=== PATIENT | female | born 1985 | race African-American/Black ===

== ENCOUNTER → 2023-06-29 09:50 | Outpatient (BNVA) | payer SELFPAY | PROVIDERS: Visit Provider Physician Assistant Medical ==

== ENCOUNTER 2024-04-23 16:00 | Emergency (ER) | payer MEDICAID, SELFPAY ==
--- NOTE | ~2024-04-23 | XR_ITS ---
CLINICAL HISTORY: fall on ice 3 view right foot Comparison: None Findings: No fractures or dislocations. No significant loss of joint space, osteophytes, or erosions. No ankle effusion. No radiopaque foreign body. IMPRESSION: 1. Dorsal soft tissue swelling in the forefoot. 2. No acute fracture or dislocation. This document has been electronically signed by: Mojgan Bolden DO on 04/23/2024 17:35:17
--- NOTE | ~2024-04-23 | XR_ITS ---
CLINICAL HISTORY: fall on ice 4 view right knee Comparison: None Findings: Bones intact. No dislocations. No significant loss of joint space, osteophytes, or erosions. No joint effusion. No radiopaque foreign body. IMPRESSION: No acute fracture, dislocation or significant joint effusion. This document has been electronically signed by: Mojgan Bolden DO on 04/23/2024 17:33:12
--- NOTE | ~2024-04-23 | XR_ITS ---
CLINICAL HISTORY: fall on ice 3 view, pelvis and right hip Comparison: None Findings: Four films were obtained. No acute fracture or dislocation. No significant arthritic change. The soft tissues are unremarkable. IMPRESSION: No acute fracture or dislocation. This document has been electronically signed by: Mojgan Bolden DO on 04/23/2024 17:37:46
--- NOTE | ~2024-04-23 | XR_ITS ---
CLINICAL HISTORY: fall on ice 3 view right ankle Comparison: None Findings: No acute fractures. Ankle mortise intact. No significant arthritic change or erosions. No ankle effusion. No radiopaque foreign body. Minimal plantar tendon enthesopathy. IMPRESSION: No acute fracture or dislocation. This document has been electronically signed by: Mojgan Bolden DO on 04/23/2024 17:33:52
[2024-04-23 16:07] VITALS: BP 128/77; PULSE 100; RESP 18; TEMP 36.8; O2SAT 100; BMI 29.0
--- NOTE | 2024-04-23 16:08 | ED_ITS ---
HPI - Extremity Injury (Lower) General Chief Complaint: Fall Stated Complaint: fall, rt ankle injury Time Seen by Provider: 04/23/24 18:27 Source: patient, RN notes reviewed and old records reviewed Mode of arrival: ambulatory History of Present Illness ED Provider: Jocelin Victor PA-C HPI Narrative: 38-year-old female no significant past medical history presenting to the ED complaining of right hip, knee, ankle and foot pain/swelling s/p mechanical slip and fall on ice 3 days ago. Denies head trauma or LOC. Has been ambulatory with pain. Denies numbness, tingling, weakness Related Data Allergies Allergy/AdvReac Type Severity Reaction Status Date / Time No Known Allergies Allergy Verified 04/23/24 16:12 Review of Systems Review of Systems: Yes all other systems are reviewed and are negative Constitutional: Constitutional: Reports as per [facility] Past Medical History Attestation statement: The following information was validated with the patient. Source: old records reviewed Physical Exam Vital Signs: Vital Signs: Last Vital Signs Temp 98.3 F 04/23/24 16:07 Pulse 100 04/23/24 16:07 Resp 18 04/23/24 16:07 BP 128/77 04/23/24 16:07 Pulse Ox 100 04/23/24 16:07 O2 Del Method Room Air 04/23/24 16:07 BMI result Body Mass Index 29.0 Const: General: cooperative, healthy appearing and no acute distress Orientation/consciousness: patient oriented x3 Limitations: no limitations HEENT: Head: Yes normal to inspection and Yes atraumatic Ears: hearing grossly normal bilaterally General nose exam: Normal external nose present Face and sinus: Yes normal facial exam Eyes: General: appearance normal, both eyes and all related structures EOM: EOMs intact bilaterally Neck: Neck: Yes normal visual inspection and Yes no meningeal signs Resp: Effort & Inspection: normal respiratory effort and no respiratory distress Auscultation: clear to auscultation bilaterally Cardio: Rate: regular rate Heart sounds: S1 normal heart sound present and S2 normal heart sound present Skin: Rashes: no rashes Wounds: no wounds Neuro: General: patient oriented x3, tone normal and no meningeal signs Cranial nerves: Yes CN's II-XII intact bilaterally Gait exam (Neuro): Normal gait present Extrem: Other: Pelvis stable. Right hip without reproducible tenderness. Full range of motion intact. Right knee with mild tenderness. Pain with flexion. No deformity/erythema Right foot/ankle with mild swelling. +ttp > foot. Neurovascularly intact. No erythema/warmth no deformity. No crepitus Course Course Course Narrative: This is a Rapid Medical Exam performed in triage by Jocelin Victor PA-C. Full HPI, ROS and PE to be performed by primary ED provider. 38yo F presenting to the ED c/o R hip, knee & ankle pain s/p fall on ice. Denie s head trauma or LOC. States has been minimally ambulatory since I status secondary to pain PE: Right foot / ankle with appreciable swelling distal pulses intact. Diffusely tender to palpation. +R knee w/ttp Plan: X-rays 1828--XR hip RT w PEL1V IMPRESSION: No acute fracture or dislocation. XR foot RT min 3V IMPRESSION: 1. Dorsal soft tissue swelling in the forefoot. 2. No acute fracture or dislocation. XR knee RT 3V IMPRESSION: No acute fracture, dislocation or significant joint effusion. XR ankle RT min 3V IMPRESSION: No acute fracture or dislocation. > Clay wrap applied to foot/ankle. Crutches supplied Results discussed with patient including worrisome signs and symptoms and strict return precautions, and when to return to the emergency department. They verbalized understanding and feel safe for discharge at this time. Medical Decision Making Medical Decision Making MDM Narrative: 38-year-old female no significant past medical history presenting to the ED complaining of right hip, knee, ankle and foot pain/swelling s/p mechanical slip and fall on ice 3 days ago. On exam vital signs stable, NAD, nontoxic appearing, physical exam as noted above. Concern for fracture vs sprain. No evidence of septic joint/arthritis Plan: X-rays Please refer to course for remaining clinical decision making, interpretation of labs/imaging results, and discussions with consultants and/or family members. Differential Diagnosis Differential Diagnoses: The differential diagnosis associated with the presentation includes As above Independent Interpretation I performed an independent interpretation of an: Plain X-Ray Radiology Impression Discussion of test interpretation with radiology: I have reviewed the radiologist's reading. External Record Review External record reviewed: Inpatient record, Office record, Outpatient record, Prior outpatient labs, Prior outpatient radiology, Primary care record and Outside ED record Tests considered The following testing was considered but not selected: As above Prescription Management I considered prescription management with: Other Chronic Conditions Patient?s care impacted by: Other Social Determinants Patient?s care significantly limited by Social Determinants of Health including: Other Social Determinant of Health Procedures Orthopedic Splinting/Casting Injury #1: Side: left Lower Extremity Injury Location: ankle and foot Lower Extremity Immobilizer: Clay wrap Other Orthopedic Equipment: crutches Discharge Plan Discharge Clinical Impression: Foot sprain, Ankle sprain, Fall Patient Disposition: Home, Self-Care Instructions: Ankle Sprain (DC), Foot Sprain (ED), R.I.C.E. Treatment (ED) Additional Instructions: Your x-rays do not show any acute fractures/breaks You likely sprained your foot/ankle Wear Clay wrap for comfort and compression Use crutches as needed Bear weight as tolerated Take ibuprofen and Tylenol for pain/swelling Follow up with her doctor Referrals: ED Physician,Generic [Physician] - 1 week Stand Alone Forms: Work/School Release Print Language: Nepalese
[2024-04-23 19:10] VITALS: BP 128/77; PULSE 100; RESP 18; TEMP 36.8; O2SAT 100
== END 2024-04-23 19:10 | disposition home or self-care (01) ==
LOC: HO.ED 18:40
PROVIDERS: Emergency Provider Emergency Medicine Emergency Medical Services
DX: S93.402A Sprain of unspecified ligament of left ankle, initial encounter (principal); M25.571 Pain in right ankle and joints of right foot; M25.561 Pain in right knee; R10.2 Pelvic and perineal pain; W00.0XXA Fall on same level due to ice and snow, initial encounter; Y93.89 Activity, other specified; Y92.488 Other paved roadways as the place of occurrence of the external cause; Y99.8 Other external cause status
CPT/HCPCS: 29515; 73502; 73562; 73610; 73630; 99282; 99283

== ENCOUNTER → 2024-04-23 16:11 | Outpatient (BNV) | payer MEDICAID, SELFPAY | PROVIDERS: Visit Provider Radiology Diagnostic Radiology | DX: M25.571 Pain in right ankle and joints of right foot (principal); M25.561 Pain in right knee; M25.551 Pain in right hip | CPT/HCPCS: 73502; 73562; 73610; 73630 ==